=== PATIENT | female | born 1990 | race American Indian/Alaskan Native ===

== ENCOUNTER 2020-04-07 17:07 | Emergency (ER) | payer OTHER ==
[~2020-04-07] VITALS: Ht 170.2 cm; Wt 90.0 kg
[2020-04-07] MEDS ORDERED: KETOROLAC 60MG/2ML VIAL IM ONE (17:30)
[2020-04-07] MEDS ORDERED: LIDOCAINE HCL/PF 1% 10 MG/ML 5ML VIAL IJ ONE (18:15)
[2020-04-07 19:56] VITALS: BP 131/74
== END 2020-04-07 19:57 | disposition home or self-care (01) ==
LOC: ER 17:07
DX: M79.645 Pain in left finger(s) (principal)
CPT/HCPCS: 29130; 73130; 96372; 99283; J1885; J3490